=== PATIENT | female | born 1945 ===

== ENCOUNTER 2025-01-03 16:35 | Inpatient (IN) | payer MEDICARE ==
[~2025-01-03] VITALS: Ht 154.9 cm; Wt 62.7 kg
[2025-01-03] VITALS (8 sets, daily range): BP systolic 130–181; BP diastolic 74–131; TEMP 96; O2SAT 100
[2025-01-03 16:57] LABS: BASOPHILS % (AUTO) 0.4 % (0.0-2.0); EOSINOPHILS # (AUTO) 0.8 K/uL (0.0-0.7); EOSINOPHILS % (AUTO) 10.3 % (0.0-7.0); HEMATOCRIT 34.4 % (31.2-41.9); HEMOGLOBIN 10.8 g/dL (10.9-14.3); LYMPHOCYTES % (AUTO) 24.4 % (20.5-51.5); MEAN CORPUSCULAR HEMOGLOBIN 25.9 uug (24.7-32.8); MEAN CORPUSCULAR HGB CONC 32 g/dL (32.3-35.6); MEAN CORPUSCULAR VOLUME 82.2 fL (75.5-95.3); MONOCYTES # (AUTO) 0.6 K/uL (0.1-1.30); NEUTROPHILS # (AUTO) 4.6 K/uL (1.8-8.9); NEUTROPHILS % (AUTO) 56.9 % (38.5-71.5); PLATELET COUNT (AUTO) 279 K/uL (179-408); RED BLOOD CELL COUNT(AUTO) 4.18 MIL/uL (3.63-4.92); RED CELL DISTRIBUTION WIDTH 14.3 % (12.3-17.7)
[2025-01-03] MEDS ORDERED: diphenhydrAMINE 50 MG/1 ML VIAL ONE (16:59)
[2025-01-03] MEDS ORDERED: METOCLOPRAMIDE HCL 10 MG/2 ML VIAL ONE (16:59)
[2025-01-03] MEDS ORDERED: HALOPERIDOL LACTATE 5 MG/1 ML VIAL ONE (16:59)
[2025-01-03 17:04] LABS: DIFFERENTIAL COMMENT 1
[2025-01-03] MEDS: METOCLOPRAMIDE HCL 10 MG/2 ML VIAL IV ONE (17:05)
[2025-01-03] MEDS: diphenhydrAMINE 50 MG/1 ML VIAL IV ONE (17:05)
[2025-01-03] MEDS: HALOPERIDOL LACTATE 5 MG/1 ML VIAL IV ONE (17:05)
[2025-01-03 17:07] LABS: CALCIUM 10.1 mg/dL (8.5-10.1); CARBON DIOXIDE 31 mmol/L (21-32); CHLORIDE 98 mmol/L (98-107); CREATININE 2.7 mg/dL (0.6-1.3); GLUCOSE 245 mg/dL (74-106); POTASSIUM 4.1 mmol/L (3.5-5.1); SODIUM SERUM 141 mmol/L (136-145)
[2025-01-03 17:19] LABS: ALANINE AMINOTRANSFERASE 17 U/L (14-59); ALBUMIN 3.4 g/dL (3.4-5.0); ALKALINE PHOSPHATASE 93 U/L (50-136); ASPARTATE AMINOTRANSFERASE 33 U/L (15-37); BILIRUBIN,DIRECT 0.2 mg/dL (0.0-0.2); BILIRUBIN,TOTAL 0.6 mg/dL (0.2-1.0); NT-PRO BNP 631 pg/mL (0-125); TOTAL PROTEIN, SERUM 8.6 g/dL (6.4-8.2)
[2025-01-03] MEDS: IV NORMAL SALINE 1000 ML BAG IV ONE (17:20)
[2025-01-03] MEDS: ETOMIDATE 20 MG/10 ML VIAL IV ONE (17:23)
[2025-01-03] MEDS: ROCURONIUM BROMIDE 50 MG/5 ML VIAL IV ONE ×2 (17:24→21:30)
[2025-01-03] MEDS ORDERED: PROPOFOL 100 ML ONE (17:30)
[2025-01-03 17:33] LABS: LACTIC ACID 2.8 mmol/L (0.4-2.0)
[2025-01-03 17:34] LABS: UREA NITROGEN, BLOOD 85 mg/dL (7-18)
[2025-01-03] MEDS: PROPOFOL 100 ML IV PRN (17:43)
[2025-01-03] MEDS ORDERED: LOPE2CAP40 PO (17:49)
[2025-01-03] MEDS ORDERED: METH1TAB69 PO (17:49)
[2025-01-03] MEDS ORDERED: NYST15PO4 TP (17:49)
[2025-01-03] MEDS ORDERED: ATOR10TA PO (17:49)
[2025-01-03] MEDS ORDERED: SITA50TA (17:49)
[2025-01-03] MEDS ORDERED: ACET-2030 PO (17:49)
[2025-01-03] MEDS ORDERED: TRAM50TA2 PO (17:49)
[2025-01-03] MEDS ORDERED: MIRT-73 PO (17:49)
[2025-01-03] MEDS ORDERED: APIX5TAB4 PO (17:49)
[2025-01-03] MEDS ORDERED: QUET25TA PO ×2 (17:49)
[2025-01-03] MEDS ORDERED: LIDO1ADH82 TP (17:49)
[2025-01-03] MEDS ORDERED: CYAN250L PO (17:49)
[2025-01-03] MEDS ORDERED: CETI-194 PO (17:49)
[2025-01-03] MEDS ORDERED: SENN8.6T19 PO (17:49)
[2025-01-03] MEDS ORDERED: NEOM1OIN19 TP (17:49)
[2025-01-03] MEDS ORDERED: DONE10TA11 PO (17:49)
[2025-01-03] MEDS ORDERED: FLUT16SP16 NS (17:49)
[2025-01-03] MEDS ORDERED: FURO-152 PO (17:49)
[2025-01-03] MEDS ORDERED: LOSA50TA39 PO (17:49)
[2025-01-03] MEDS ORDERED: METRONIDAZOLE 500 MG/NS 100ML 100 ML IV ONE (17:57)
[2025-01-03] MEDS ORDERED: CEFTRIAXONE /D5W 50ML IVPB **ER PYXIS IV ONE (17:57)
[2025-01-03] MEDS: CEFTRIAXONE 1 G in IV DEXTROSE 5% 50 ML IV ONE (18:00)
[2025-01-03] MEDS ORDERED: MISCELLANEOUS MED IV ONE (18:15)
[2025-01-03 18:40] LABS: ABG BASE EXCESS 3.9 mmol/L (-2.0-3.0); ABG HCO3 24.8 mmol/L (21.0-28.0); ABG PH 7.597 (7.350-7.450); ABG PO2 > 500.9 mmHg (83.0-108.0); ABG SITE LEFT RADIAL; ABG TOTAL HEMOGLOBIN 10.9 G/dL (12.0-16.0); AaDO2 99.9 mmHg; COHb 0.2 % (0.5-1.5); MetHb 0.1 % (0.0-1.5); O2Hb 99.4 % (94.0-98.0); VT, ABG 450 mL
[2025-01-03] MEDS: METRONIDAZOLE 500 MG/NS 100ML 100 ML IV ONE (18:41)
[2025-01-03 19:03] LABS: *BILIRUBIN,URIN NEGATIVE (NEGATIVE); *BLOOD, URINE 1+ (NEGATIVE); *CLARITY,URINE CLEAR (CLEAR); *COLOR,URINE YELLOW (YELLOW); *KETONES,URINE NEGATIVE (NEGATIVE); *PROTEIN,URINE 1+ (NEGATIVE); *UROBILINOGEN,URINE 0.2 E.U./dl (NORMAL); LEUKOCYTE ESTERASE ,URINE 2+ (NEGATIVE); NITRITE, URINE NEGATIVE (NEGATIVE); UGLUCOSE NEGATIVE (NEGATIVE)
[2025-01-03 19:24] LABS: BACTERIA,URINE FEW /HPF (NONE SEEN); SQUAMOUS EPITHELIAL CELL,UR FEW /HPF (NONE SEEN); WBC,URINE 50-80 /HPF (0-3)
[2025-01-03] MEDS ORDERED: PANTOPRAZOLE SODIUM 40 MG VIAL ONE (20:21)
[2025-01-03] MEDS: PANTOPRAZOLE SODIUM IV 80 MG in IV DEXTROSE 5% 100 ML IV ONE (20:30)
[2025-01-03 22:18] LABS: HEMATOCRIT 36.1 % (31.2-41.9); HEMOGLOBIN 11.4 g/dL (10.9-14.3)
[2025-01-03] MEDS: PANTOPRAZOLE SODIUM 40 MG VIAL IV SCH (23:19)
[2025-01-03] MEDS: IV D5 1/2 NS 1000 ML 1,000 ML IV PRN (23:20)
[2025-01-04] VITALS (63 sets, daily range): BP systolic 81–158; BP diastolic 58–133; TEMP 96.5–98.6; O2SAT 98–100
[2025-01-04 02:04] LABS: HEMATOCRIT 33.1 % (31.2-41.9); HEMOGLOBIN 10.4 g/dL (10.9-14.3)
[2025-01-04] MEDS: PROPOFOL 100 ML IV PRN (03:49)
[2025-01-04 05:55] LABS: ABG BASE EXCESS 3.6 mmol/L (-2.0-3.0); ABG HCO3 25.9 mmol/L (21.0-28.0); ABG PCO2 31.5 mmHg (32.0-45.0); ABG PH 7.533 (7.350-7.450); ABG PO2 139.2 mmHg (83.0-108.0); ABG SITE RIGHT RADIAL; ABG TOTAL HEMOGLOBIN 10.8 G/dL (12.0-16.0); COHb 0.3 % (0.5-1.5); MetHb 0.2 % (0.0-1.5); O2Hb 98.4 % (94.0-98.0); VT, ABG 450 mL
[2025-01-04 06:02] LABS: BASOPHILS % (AUTO) 0.1 % (0.0-2.0); EOSINOPHILS # (AUTO) 0.3 K/uL (0.0-0.7); EOSINOPHILS % (AUTO) 3.8 % (0.0-7.0); HEMATOCRIT 33.2 % (31.2-41.9); HEMOGLOBIN 10.8 g/dL (10.9-14.3); LYMPHOCYTES # (AUTO) 0.5 K/uL (0.8-4.8); LYMPHOCYTES % (AUTO) 6.2 % (20.5-51.5); MEAN CORPUSCULAR HEMOGLOBIN 26.5 uug (24.7-32.8); MEAN CORPUSCULAR HGB CONC 33 g/dL (32.3-35.6); MEAN CORPUSCULAR VOLUME 81.4 fL (75.5-95.3); MONOCYTES # (AUTO) 0.4 K/uL (0.1-1.30); MONOCYTES % (AUTO) 4.4 % (0.0-11.0); NEUTROPHILS # (AUTO) 7.1 K/uL (1.8-8.9); NEUTROPHILS % (AUTO) 85.5 % (38.5-71.5); PLATELET COUNT (AUTO) 262 K/uL (179-408); RED BLOOD CELL COUNT(AUTO) 4.08 MIL/uL (3.63-4.92); WHITE BLOOD COUNT (AUTO) 8.4 K/uL (3.8-11.8)
[2025-01-04 06:24] LABS: DIFFERENTIAL COMMENT 1
[2025-01-04 06:28] LABS: ALANINE AMINOTRANSFERASE 14 U/L (14-59); ALKALINE PHOSPHATASE 93 U/L (50-136); ASPARTATE AMINOTRANSFERASE 32 U/L (15-37); BILIRUBIN,TOTAL 0.6 mg/dL (0.2-1.0); CALCIUM 9.3 mg/dL (8.5-10.1); CARBON DIOXIDE 29 mmol/L (21-32); CHLORIDE 106 mmol/L (98-107); CREATININE 2.3 mg/dL (0.6-1.3); GLUCOSE 303 mg/dL (74-106); POTASSIUM 4.1 mmol/L (3.5-5.1); SODIUM SERUM 146 mmol/L (136-145); TOTAL PROTEIN, SERUM 7.9 g/dL (6.4-8.2); UREA NITROGEN, BLOOD 72 mg/dL (7-18)
[2025-01-04 06:35] LABS: THYROID STIMULATING HORMONE 1.296 mIU/mL (0.358-3.740)
[2025-01-04 10:23] LABS: HEMOGLOBIN 10.5 g/dL (10.9-14.3)
[2025-01-04 14:09] LABS: HEMATOCRIT 32.3 % (31.2-41.9); HEMOGLOBIN 10.3 g/dL (10.9-14.3)
[2025-01-04] MEDS ORDERED: APIX5TAB PO (15:17)
[2025-01-04] MEDS ORDERED: LIDO30AD10 TD (15:33)
[2025-01-04] MEDS ORDERED: CYAN100T44 PO (15:33)
[2025-01-04] MEDS ORDERED: MIRT-93 PO (15:33)
[2025-01-04 18:15] LABS: HEMATOCRIT 31.4 % (31.2-41.9)
[2025-01-04] MEDS: CEFTRIAXONE 1 G in IV DEXTROSE 5% 50 ML IV SCH (20:06)
[2025-01-05] VITALS (64 sets, daily range): BP systolic 69–162; BP diastolic 54–92; TEMP 97.5–98; O2SAT 99–100
[2025-01-05 05:15] LABS: BASOPHILS % (AUTO) 0.2 % (0.0-2.0); EOSINOPHILS % (AUTO) 11.2 % (0.0-7.0); HEMATOCRIT 30.5 % (31.2-41.9); HEMOGLOBIN 9.9 g/dL (10.9-14.3); LYMPHOCYTES # (AUTO) 0.8 K/uL (0.8-4.8); LYMPHOCYTES % (AUTO) 8.5 % (20.5-51.5); MEAN CORPUSCULAR HEMOGLOBIN 26.4 uug (24.7-32.8); MEAN CORPUSCULAR HGB CONC 33 g/dL (32.3-35.6); MONOCYTES # (AUTO) 0.6 K/uL (0.1-1.30); MONOCYTES % (AUTO) 6.4 % (0.0-11.0); NEUTROPHILS # (AUTO) 6.6 K/uL (1.8-8.9); NEUTROPHILS % (AUTO) 73.7 % (38.5-71.5); PLATELET COUNT (AUTO) 228 K/uL (179-408); RED BLOOD CELL COUNT(AUTO) 3.76 MIL/uL (3.63-4.92); RED CELL DISTRIBUTION WIDTH 14.5 % (12.3-17.7)
[2025-01-05 05:19] LABS: DIFFERENTIAL COMMENT 1
[2025-01-05 05:29] LABS: ALANINE AMINOTRANSFERASE 13 U/L (14-59); ALBUMIN 2.5 g/dL (3.4-5.0); ALKALINE PHOSPHATASE 84 U/L (50-136); ASPARTATE AMINOTRANSFERASE 22 U/L (15-37); BILIRUBIN,DIRECT 0.1 mg/dL (0.0-0.2); BILIRUBIN,TOTAL 0.4 mg/dL (0.2-1.0); CALCIUM 8.5 mg/dL (8.5-10.1); CARBON DIOXIDE 27 mmol/L (21-32); CHLORIDE 105 mmol/L (98-107); CREATININE 1.8 mg/dL (0.6-1.3); GLUCOSE 277 mg/dL (74-106); MAGNESIUM 2.3 mg/dL (1.8-2.4); PHOSPHOROUS 2.6 mg/dL (2.5-4.9); POTASSIUM 3.4 mmol/L (3.5-5.1); SODIUM SERUM 142 mmol/L (136-145); UREA NITROGEN, BLOOD 51 mg/dL (7-18)
[2025-01-05 05:32] LABS: ABG HCO3 20.6 mmol/L (21.0-28.0); ABG PCO2 22.6 mmHg (32.0-45.0); ABG PH 7.578 (7.350-7.450); ABG PO2 138.8 mmHg (83.0-108.0); ABG SITE RIGHT RADIAL; AaDO2 99.1 mmHg; COHb 0.2 % (0.5-1.5); MetHb 0.2 % (0.0-1.5); O2Hb 98.7 % (94.0-98.0); VT, ABG 450 mL
[2025-01-05 05:37] LABS: LACTIC ACID 2.4 mmol/L (0.4-2.0)
[2025-01-05] MEDS ORDERED: NOREPINEPHRINE 8MG/NS 250ML 250 ML IV PRN ×2 (10:00→13:45)
[2025-01-05] MEDS: POTASSIUM CHLORIDE 50 ML IV SCH (11:12)
[2025-01-05] MEDS ORDERED: PROPOFOL 200 MG/20 ML BOTTLE ONE (12:00)
[2025-01-05] MEDS ORDERED: EPINEPHRINE 1:10,000 1 MG/10 ML DISP.SYRIN ONE (12:22)
[2025-01-06] VITALS (33 sets, daily range): BP systolic 112–146; BP diastolic 55–83; TEMP 97–98.6; O2SAT 96–100
[2025-01-06 05:26] LABS: BASOPHILS # (AUTO) 0.1 K/UL (0.0-0.2); BASOPHILS % (AUTO) 0.6 % (0.0-2.0); EOSINOPHILS # (AUTO) 1.1 K/uL (0.0-0.7); EOSINOPHILS % (AUTO) 11.2 % (0.0-7.0); HEMATOCRIT 31.3 % (31.2-41.9); HEMOGLOBIN 10.2 g/dL (10.9-14.3); LYMPHOCYTES # (AUTO) 0.8 K/uL (0.8-4.8); LYMPHOCYTES % (AUTO) 8.1 % (20.5-51.5); MEAN CORPUSCULAR HEMOGLOBIN 26.3 uug (24.7-32.8); MEAN CORPUSCULAR HGB CONC 32 g/dL (32.3-35.6); MONOCYTES # (AUTO) 0.5 K/uL (0.1-1.30); MONOCYTES % (AUTO) 5.8 % (0.0-11.0); NEUTROPHILS # (AUTO) 7.1 K/uL (1.8-8.9); NEUTROPHILS % (AUTO) 74.3 % (38.5-71.5); PLATELET COUNT (AUTO) 220 K/uL (179-408); RED BLOOD CELL COUNT(AUTO) 3.86 MIL/uL (3.63-4.92); RED CELL DISTRIBUTION WIDTH 14.6 % (12.3-17.7); WHITE BLOOD COUNT (AUTO) 9.5 K/uL (3.8-11.8)
[2025-01-06 05:33] LABS: DIFFERENTIAL COMMENT 1
[2025-01-06 05:37] LABS: CARBON DIOXIDE 24 mmol/L (21-32); CHLORIDE 109 mmol/L (98-107); CREATININE 1.3 mg/dL (0.6-1.3); GLUCOSE 260 mg/dL (74-106); PHOSPHOROUS 2.9 mg/dL (2.5-4.9); POTASSIUM 3.5 mmol/L (3.5-5.1); SODIUM SERUM 143 mmol/L (136-145); UREA NITROGEN, BLOOD 34 mg/dL (7-18)
[2025-01-06 07:32] LABS: ABG BASE EXCESS -1.8 mmol/L (-2.0-3.0); ABG PCO2 34.5 mmHg (32.0-45.0); ABG PH 7.423 (7.350-7.450); ABG SITE RIGHT RADIAL; ABG TOTAL HEMOGLOBIN 11.7 G/dL (12.0-16.0); AaDO2 98.5 mmHg; COHb 0.3 % (0.5-1.5); MetHb 0.2 % (0.0-1.5); O2Hb 98.2 % (94.0-98.0)
[2025-01-06] MEDS: MUPIROCIN 2% OINT 22 GM TUBE NS SCH (13:06)
[2025-01-06] MEDS ORDERED: DEXTROSE 50% 50 ML DISP.SYRIN IV PRN (17:00)
[2025-01-06] MEDS: BLOOD SUGAR DIAGNOSTIC 1 EACH STRIP VI SCH (17:33)
[2025-01-06] MEDS: INSULIN REGULAR, HUMAN 1000 UNIT/10 ML VIAL SQ PRN (17:40)
[2025-01-07] VITALS (26 sets, daily range): BP systolic 114–150; BP diastolic 46–104; TEMP 97.4–98.7; O2SAT 98–100
[2025-01-07 05:54] LABS: BASOPHILS % (AUTO) 0.2 % (0.0-2.0); EOSINOPHILS # (AUTO) 0.7 K/uL (0.0-0.7); EOSINOPHILS % (AUTO) 7.9 % (0.0-7.0); HEMATOCRIT 29.7 % (31.2-41.9); HEMOGLOBIN 9.6 g/dL (10.9-14.3); LYMPHOCYTES # (AUTO) 1.3 K/uL (0.8-4.8); LYMPHOCYTES % (AUTO) 14.1 % (20.5-51.5); MEAN CORPUSCULAR HEMOGLOBIN 26.4 uug (24.7-32.8); MEAN CORPUSCULAR HGB CONC 32 g/dL (32.3-35.6); MEAN CORPUSCULAR VOLUME 81.7 fL (75.5-95.3); MONOCYTES # (AUTO) 0.7 K/uL (0.1-1.30); MONOCYTES % (AUTO) 7.9 % (0.0-11.0); NEUTROPHILS # (AUTO) 6.3 K/uL (1.8-8.9); NEUTROPHILS % (AUTO) 69.9 % (38.5-71.5); PLATELET COUNT (AUTO) 230 K/uL (179-408); RED BLOOD CELL COUNT(AUTO) 3.64 MIL/uL (3.63-4.92); RED CELL DISTRIBUTION WIDTH 14.3 % (12.3-17.7); WHITE BLOOD COUNT (AUTO) 8.9 K/uL (3.8-11.8)
[2025-01-07 05:55] LABS: DIFFERENTIAL COMMENT 1
[2025-01-07 06:01] LABS: CALCIUM 8.3 mg/dL (8.5-10.1); CARBON DIOXIDE 25 mmol/L (21-32); CHLORIDE 108 mmol/L (98-107); CREATININE 1.3 mg/dL (0.6-1.3); GLUCOSE 100 mg/dL (74-106); PHOSPHOROUS 2.7 mg/dL (2.5-4.9); POTASSIUM 3.6 mmol/L (3.5-5.1); SODIUM SERUM 143 mmol/L (136-145); UREA NITROGEN, BLOOD 26 mg/dL (7-18)
[2025-01-07 06:02] LABS: ABG BASE EXCESS -1.7 mmol/L (-2.0-3.0); ABG PCO2 33.5 mmHg (32.0-45.0); ABG PH 7.435 (7.350-7.450); ABG PO2 135.8 mmHg (83.0-108.0); ABG SITE LEFT RADIAL; ABG TOTAL HEMOGLOBIN 10.1 G/dL (12.0-16.0); AaDO2 98.8 mmHg; COHb 0.3 % (0.5-1.5); MetHb 0.3 % (0.0-1.5); O2Hb 98.3 % (94.0-98.0)
[2025-01-07] MEDS: PANTOPRAZOLE SODIUM 40 MG VIAL IV SCH (08:07)
[2025-01-07] MEDS ORDERED: DC PROPOFOL ONCE EXTUBATED XX PRN (08:15)
[2025-01-07] MEDS ORDERED: LEVALBUTEROL HCL NEB 0.63 MG/3 ML NEBU NEB PRN (08:30)
[2025-01-07] MEDS: ALBUTEROL SULFATE 1.25 MG/3 ML NEBU NEB PRN (08:57)
[2025-01-07] MEDS: VITAMINS A AND D OINT 42 GM TUBE TP PRN (14:49)
[2025-01-08] VITALS (16 sets, daily range): BP systolic 101–143; BP diastolic 52–80; TEMP 96–98.7; O2SAT 97–100
[2025-01-08 04:17] LABS: BASOPHILS % (AUTO) 0.5 % (0.0-2.0); EOSINOPHILS # (AUTO) 0.9 K/uL (0.0-0.7); EOSINOPHILS % (AUTO) 10.9 % (0.0-7.0); HEMATOCRIT 29.9 % (31.2-41.9); HEMOGLOBIN 9.8 g/dL (10.9-14.3); LYMPHOCYTES # (AUTO) 1.2 K/uL (0.8-4.8); LYMPHOCYTES % (AUTO) 13.8 % (20.5-51.5); MEAN CORPUSCULAR HEMOGLOBIN 26.5 uug (24.7-32.8); MEAN CORPUSCULAR HGB CONC 33 g/dL (32.3-35.6); MEAN CORPUSCULAR VOLUME 81.3 fL (75.5-95.3); MONOCYTES # (AUTO) 0.8 K/uL (0.1-1.30); MONOCYTES % (AUTO) 9.4 % (0.0-11.0); NEUTROPHILS # (AUTO) 5.5 K/uL (1.8-8.9); NEUTROPHILS % (AUTO) 65.4 % (38.5-71.5); PLATELET COUNT (AUTO) 240 K/uL (179-408); RED BLOOD CELL COUNT(AUTO) 3.68 MIL/uL (3.63-4.92); RED CELL DISTRIBUTION WIDTH 14.2 % (12.3-17.7); WHITE BLOOD COUNT (AUTO) 8.4 K/uL (3.8-11.8)
[2025-01-08 04:24] LABS: DIFFERENTIAL COMMENT 1
[2025-01-08 04:25] LABS: CALCIUM 8.4 mg/dL (8.5-10.1); CARBON DIOXIDE 25 mmol/L (21-32); CHLORIDE 110 mmol/L (98-107); CREATININE 1.1 mg/dL (0.6-1.3); GLUCOSE 120 mg/dL (74-106); MAGNESIUM 1.9 mg/dL (1.8-2.4); POTASSIUM 3.2 mmol/L (3.5-5.1); SODIUM SERUM 145 mmol/L (136-145); UREA NITROGEN, BLOOD 18 mg/dL (7-18)
[2025-01-08 05:04] LABS: ABG BASE EXCESS 0.7 mmol/L (-2.0-3.0); ABG HCO3 25.2 mmol/L (21.0-28.0); ABG PH 7.417 (7.350-7.450); ABG PO2 82.1 mmHg (83.0-108.0); ABG SITE LEFT RADIAL; ABG TOTAL HEMOGLOBIN 10.7 G/dL (12.0-16.0); AaDO2 96.3 mmHg; COHb 0.3 % (0.5-1.5); MetHb 0.2 % (0.0-1.5); O2Hb 96.3 % (94.0-98.0)
[2025-01-08] MEDS: POTASSIUM PHOSPHATE MM 15 MMOL in IV NORMAL SALINE 250 ML IV ONE (08:41)
[2025-01-09] VITALS: BP 146/67; TEMP 97.7; O2SAT 100
[2025-01-09 04:00] VITALS: BP 148/71; TEMP 98.8; O2SAT 100
[2025-01-09 07:20] LABS: BASOPHILS # (AUTO) 0.1 K/UL (0.0-0.2); BASOPHILS % (AUTO) 0.8 % (0.0-2.0); EOSINOPHILS # (AUTO) 0.9 K/uL (0.0-0.7); EOSINOPHILS % (AUTO) 11.3 % (0.0-7.0); HEMATOCRIT 31.1 % (31.2-41.9); HEMOGLOBIN 10.1 g/dL (10.9-14.3); LYMPHOCYTES # (AUTO) 1.3 K/uL (0.8-4.8); LYMPHOCYTES % (AUTO) 16.6 % (20.5-51.5); MEAN CORPUSCULAR HEMOGLOBIN 26.5 uug (24.7-32.8); MEAN CORPUSCULAR HGB CONC 32 g/dL (32.3-35.6); MEAN CORPUSCULAR VOLUME 81.9 fL (75.5-95.3); MONOCYTES # (AUTO) 0.7 K/uL (0.1-1.30); MONOCYTES % (AUTO) 9.3 % (0.0-11.0); NEUTROPHILS # (AUTO) 4.8 K/uL (1.8-8.9); PLATELET COUNT (AUTO) 239 K/uL (179-408); RED CELL DISTRIBUTION WIDTH 13.7 % (12.3-17.7); WHITE BLOOD COUNT (AUTO) 7.7 K/uL (3.8-11.8)
[2025-01-09 07:27] LABS: DIFFERENTIAL COMMENT 1
[2025-01-09 07:36] LABS: CALCIUM 8.8 mg/dL (8.5-10.1); CARBON DIOXIDE 27 mmol/L (21-32); CHLORIDE 110 mmol/L (98-107); GLUCOSE 119 mg/dL (74-106); MAGNESIUM 1.7 mg/dL (1.8-2.4); PHOSPHOROUS 2.3 mg/dL (2.5-4.9); POTASSIUM 3.5 mmol/L (3.5-5.1); SODIUM SERUM 146 mmol/L (136-145); UREA NITROGEN, BLOOD 12 mg/dL (7-18)
[2025-01-09 07:51] VITALS: BP 145/68; TEMP 97.9; O2SAT 100
[2025-01-09] MEDS: MAGNESIUM SULFATE/D5W 100 ML IV SCH (09:23)
[2025-01-09] MEDS: POTASSIUM PHOSPHATE MM 15 MMOL in IV NORMAL SALINE 250 ML IV ONE (10:17)
[2025-01-09 11:16] VITALS: BP 106/68; TEMP 98; O2SAT 100
[2025-01-09] MEDS ORDERED: POLYVINYL ALCOHOL OPHT DROPS 15 ML BOTTLE EACHEYE PRN (12:15)
[2025-01-09 15:25] VITALS: BP 153/74; TEMP 98.4; O2SAT 100
[2025-01-09] MEDS: QUETIAPINE FUMARATE 25 MG TABLET PO PRN (15:56)
[2025-01-09] MEDS: SUCRALFATE 1 G TABLET PO SCH (15:56)
[2025-01-09 19:50] VITALS: BP 144/74; TEMP 97.4; O2SAT 99
[2025-01-09] MEDS ORDERED: DEXTROSE 50% 50 ML DISP.SYRIN IV PRN (20:00)
[2025-01-09] MEDS: BLOOD SUGAR DIAGNOSTIC 1 EACH STRIP VI SCH (20:44)
[2025-01-09] MEDS: MIRTAZAPINE 15 MG TABLET PO SCH (20:45)
[2025-01-09] MEDS: DONEPEZIL 10 MG TABLET PO SCH (20:45)
[2025-01-09] MEDS: SENNOSIDES 1 TABLET PO PRN (20:45)
[2025-01-10 05:31] VITALS: BP 162/84; TEMP 97.6; O2SAT 100
[2025-01-10 06:56] LABS: BASOPHILS # (AUTO) 0.1 K/UL (0.0-0.2); BASOPHILS % (AUTO) 1.1 % (0.0-2.0); EOSINOPHILS # (AUTO) 0.7 K/uL (0.0-0.7); EOSINOPHILS % (AUTO) 9.9 % (0.0-7.0); HEMATOCRIT 30.5 % (31.2-41.9); HEMOGLOBIN 9.7 g/dL (10.9-14.3); LYMPHOCYTES # (AUTO) 1.2 K/uL (0.8-4.8); LYMPHOCYTES % (AUTO) 17.2 % (20.5-51.5); MEAN CORPUSCULAR HGB CONC 32 g/dL (32.3-35.6); MEAN CORPUSCULAR VOLUME 81.7 fL (75.5-95.3); MONOCYTES # (AUTO) 0.6 K/uL (0.1-1.30); MONOCYTES % (AUTO) 8.6 % (0.0-11.0); NEUTROPHILS # (AUTO) 4.5 K/uL (1.8-8.9); NEUTROPHILS % (AUTO) 63.2 % (38.5-71.5); PLATELET COUNT (AUTO) 233 K/uL (179-408); RED BLOOD CELL COUNT(AUTO) 3.74 MIL/uL (3.63-4.92); RED CELL DISTRIBUTION WIDTH 14.1 % (12.3-17.7); WHITE BLOOD COUNT (AUTO) 7.2 K/uL (3.8-11.8)
[2025-01-10 06:58] LABS: DIFFERENTIAL COMMENT 1
[2025-01-10 07:13] LABS: CALCIUM 9.1 mg/dL (8.5-10.1); CARBON DIOXIDE 23 mmol/L (21-32); CHLORIDE 110 mmol/L (98-107); GLUCOSE 126 mg/dL (74-106); PHOSPHOROUS 3.4 mg/dL (2.5-4.9); POTASSIUM 4.3 mmol/L (3.5-5.1); SODIUM SERUM 144 mmol/L (136-145); UREA NITROGEN, BLOOD 12 mg/dL (7-18)
[2025-01-10 08:05] VITALS: BP 169/89; TEMP 98; O2SAT 100
[2025-01-10] MEDS: LOSARTAN POTASSIUM 50 MG TABLET PO SCH (09:53)
[2025-01-10] MEDS: LIDOCAINE 5% PATCH TD SCH (09:54)
[2025-01-10] MEDS: CYANOCOBALAMIN 100 MCG TABLET PO SCH (09:54)
[2025-01-10 10:21] VITALS: BP 156/84
[2025-01-10 12:00] VITALS: BP 146/72; TEMP 97.6
[2025-01-10 19:52] VITALS: BP 163/86; TEMP 97.6; O2SAT 91
[2025-01-11] MEDS: hydrALAZINE HCL 20 MG/1 ML VIAL IV PRN (04:35)
[2025-01-11 05:39] VITALS: BP 173/89; TEMP 97.6; O2SAT 100
[2025-01-11 06:43] LABS: BASOPHILS # (AUTO) 0.1 K/UL (0.0-0.2); BASOPHILS % (AUTO) 1.2 % (0.0-2.0); EOSINOPHILS # (AUTO) 0.6 K/uL (0.0-0.7); EOSINOPHILS % (AUTO) 9.4 % (0.0-7.0); HEMATOCRIT 31.2 % (31.2-41.9); LYMPHOCYTES # (AUTO) 1.3 K/uL (0.8-4.8); LYMPHOCYTES % (AUTO) 20.2 % (20.5-51.5); MEAN CORPUSCULAR HEMOGLOBIN 26.2 uug (24.7-32.8); MEAN CORPUSCULAR HGB CONC 32 g/dL (32.3-35.6); MEAN CORPUSCULAR VOLUME 81.4 fL (75.5-95.3); MONOCYTES # (AUTO) 0.7 K/uL (0.1-1.30); MONOCYTES % (AUTO) 10.7 % (0.0-11.0); NEUTROPHILS # (AUTO) 3.9 K/uL (1.8-8.9); NEUTROPHILS % (AUTO) 58.5 % (38.5-71.5); PLATELET COUNT (AUTO) 239 K/uL (179-408); RED BLOOD CELL COUNT(AUTO) 3.84 MIL/uL (3.63-4.92); RED CELL DISTRIBUTION WIDTH 14.3 % (12.3-17.7); WHITE BLOOD COUNT (AUTO) 6.7 K/uL (3.8-11.8)
[2025-01-11 06:54] LABS: CALCIUM 9.3 mg/dL (8.5-10.1); CARBON DIOXIDE 22 mmol/L (21-32); CHLORIDE 108 mmol/L (98-107); CREATININE 1.1 mg/dL (0.6-1.3); GLUCOSE 124 mg/dL (74-106); SODIUM SERUM 145 mmol/L (136-145); UREA NITROGEN, BLOOD 14 mg/dL (7-18)
[2025-01-11 06:58] LABS: DIFFERENTIAL COMMENT 1
[2025-01-11] MEDS: GLUCERNA SHAKE 237 ML CAN PO SCH (09:21)
[2025-01-11] MEDS: INSULIN REGULAR, HUMAN 1000 UNIT/10 ML VIAL SQ PRN (10:48)
[2025-01-11] MEDS: QUETIAPINE FUMARATE 25 MG TABLET PO SCH (11:20)
[2025-01-11] MEDS: PANTOPRAZOLE SODIUM 40 MG TABLET.DR PO SCH (16:46)
[2025-01-11 19:52] VITALS: BP 144/58; TEMP 97.4; O2SAT 98
[2025-01-12 05:13] VITALS: BP 144/71; TEMP 97.3; O2SAT 97
[2025-01-12 06:56] LABS: BASOPHILS # (AUTO) 0.1 K/UL (0.0-0.2); EOSINOPHILS # (AUTO) 0.6 K/uL (0.0-0.7); EOSINOPHILS % (AUTO) 10.4 % (0.0-7.0); HEMATOCRIT 31.1 % (31.2-41.9); HEMOGLOBIN 9.7 g/dL (10.9-14.3); LYMPHOCYTES # (AUTO) 1.1 K/uL (0.8-4.8); LYMPHOCYTES % (AUTO) 18.5 % (20.5-51.5); MEAN CORPUSCULAR HGB CONC 31 g/dL (32.3-35.6); MEAN CORPUSCULAR VOLUME 83.3 fL (75.5-95.3); MONOCYTES # (AUTO) 0.6 K/uL (0.1-1.30); MONOCYTES % (AUTO) 10.4 % (0.0-11.0); NEUTROPHILS # (AUTO) 3.5 K/uL (1.8-8.9); NEUTROPHILS % (AUTO) 59.7 % (38.5-71.5); PLATELET COUNT (AUTO) 190 K/uL (179-408); RED BLOOD CELL COUNT(AUTO) 3.74 MIL/uL (3.63-4.92); RED CELL DISTRIBUTION WIDTH 14.5 % (12.3-17.7); WHITE BLOOD COUNT (AUTO) 5.9 K/uL (3.8-11.8)
[2025-01-12 07:10] LABS: CALCIUM 9.3 mg/dL (8.5-10.1); CARBON DIOXIDE 24 mmol/L (21-32); CHLORIDE 108 mmol/L (98-107); CREATININE 1.2 mg/dL (0.6-1.3); DIFFERENTIAL COMMENT 1; GLUCOSE 119 mg/dL (74-106); SODIUM SERUM 139 mmol/L (136-145); UREA NITROGEN, BLOOD 19 mg/dL (7-18)
[2025-01-12 07:21] LABS: POTASSIUM 3.9 mmol/L (3.5-5.1)
[2025-01-12 12:00] VITALS: BP 149/85; TEMP 97.5; O2SAT 100
[2025-01-12] MEDS: MIRALAX 17 GM POWD.PACK PO SCH (13:03)
[2025-01-12 16:00] VITALS: BP 128/70; TEMP 97.7; O2SAT 100
[2025-01-12 19:00] VITALS: BP 133/68; TEMP 97.6; O2SAT 100
[2025-01-13 05:56] LABS: BASOPHILS % (AUTO) 0.3 % (0.0-2.0); EOSINOPHILS # (AUTO) 0.8 K/uL (0.0-0.7); EOSINOPHILS % (AUTO) 13.1 % (0.0-7.0); HEMATOCRIT 31.7 % (31.2-41.9); HEMOGLOBIN 10.4 g/dL (10.9-14.3); LYMPHOCYTES # (AUTO) 0.9 K/uL (0.8-4.8); LYMPHOCYTES % (AUTO) 15.2 % (20.5-51.5); MEAN CORPUSCULAR HEMOGLOBIN 26.7 uug (24.7-32.8); MEAN CORPUSCULAR HGB CONC 33 g/dL (32.3-35.6); MEAN CORPUSCULAR VOLUME 81.6 fL (75.5-95.3); MONOCYTES # (AUTO) 0.7 K/uL (0.1-1.30); MONOCYTES % (AUTO) 11.5 % (0.0-11.0); NEUTROPHILS # (AUTO) 3.6 K/uL (1.8-8.9); NEUTROPHILS % (AUTO) 59.9 % (38.5-71.5); PLATELET COUNT (AUTO) 214 K/uL (179-408); RED BLOOD CELL COUNT(AUTO) 3.89 MIL/uL (3.63-4.92); RED CELL DISTRIBUTION WIDTH 14.1 % (12.3-17.7)
[2025-01-13 05:59] LABS: DIFFERENTIAL COMMENT 1
[2025-01-13 06:00] VITALS: BP 149/78; TEMP 97.7; O2SAT 100
[2025-01-13 06:07] LABS: CALCIUM 9.4 mg/dL (8.5-10.1); CARBON DIOXIDE 24 mmol/L (21-32); CHLORIDE 106 mmol/L (98-107); CREATININE 1.3 mg/dL (0.6-1.3); GLUCOSE 147 mg/dL (74-106); POTASSIUM 4.1 mmol/L (3.5-5.1); SODIUM SERUM 139 mmol/L (136-145); UREA NITROGEN, BLOOD 16 mg/dL (7-18)
[2025-01-13 08:03] VITALS: BP 152/67; TEMP 98.4; O2SAT 100
[2025-01-13 12:06] VITALS: BP 126/72; TEMP 96.3; O2SAT 97
[2025-01-13 19:00] VITALS: BP 149/56; TEMP 97.7; O2SAT 100
[2025-01-13 19:40] VITALS: BP 149/56; TEMP 97.7; O2SAT 100
[2025-01-13] MEDS: QUETIAPINE FUMARATE 25 MG TABLET PO SCH (21:26)
[2025-01-14 06:00] VITALS: BP 137/63; TEMP 98.7; O2SAT 98
[2025-01-14 07:36] LABS: BASOPHILS % (AUTO) 0.2 % (0.0-2.0); EOSINOPHILS % (AUTO) 19.1 % (0.0-7.0); HEMOGLOBIN 9.2 g/dL (10.9-14.3); LYMPHOCYTES # (AUTO) 1.1 K/uL (0.8-4.8); LYMPHOCYTES % (AUTO) 20.7 % (20.5-51.5); MEAN CORPUSCULAR HEMOGLOBIN 26.3 uug (24.7-32.8); MEAN CORPUSCULAR HGB CONC 33 g/dL (32.3-35.6); MEAN CORPUSCULAR VOLUME 80.2 fL (75.5-95.3); MONOCYTES # (AUTO) 0.5 K/uL (0.1-1.30); MONOCYTES % (AUTO) 9.3 % (0.0-11.0); NEUTROPHILS # (AUTO) 2.7 K/uL (1.8-8.9); NEUTROPHILS % (AUTO) 50.7 % (38.5-71.5); PLATELET COUNT (AUTO) 223 K/uL (179-408); RED BLOOD CELL COUNT(AUTO) 3.49 MIL/uL (3.63-4.92); WHITE BLOOD COUNT (AUTO) 5.4 K/uL (3.8-11.8)
[2025-01-14 08:06] LABS: DIFFERENTIAL COMMENT 1
[2025-01-14 08:16] LABS: CARBON DIOXIDE 27 mmol/L (21-32); CHLORIDE 107 mmol/L (98-107); GLUCOSE 92 mg/dL (74-106); POTASSIUM 3.7 mmol/L (3.5-5.1); SODIUM SERUM 143 mmol/L (136-145); UREA NITROGEN, BLOOD 14 mg/dL (7-18)
[2025-01-14 08:23] LABS: CALCIUM 8.7 mg/dL (8.5-10.1)
[2025-01-14 11:35] VITALS: BP 121/59; TEMP 97.7; O2SAT 94
[2025-01-14 16:00] VITALS: BP 112/63; TEMP 98.1; O2SAT 99
[2025-01-15 06:07] LABS: CALCIUM 8.7 mg/dL (8.5-10.1); CARBON DIOXIDE 28 mmol/L (21-32); CHLORIDE 105 mmol/L (98-107); CREATININE 1.2 mg/dL (0.6-1.3); GLUCOSE 98 mg/dL (74-106); POTASSIUM 4.2 mmol/L (3.5-5.1); SODIUM SERUM 141 mmol/L (136-145); UREA NITROGEN, BLOOD 15 mg/dL (7-18)
[2025-01-15 06:13] LABS: BASOPHILS % (AUTO) 0.4 % (0.0-2.0); EOSINOPHILS # (AUTO) 1.4 K/uL (0.0-0.7); EOSINOPHILS % (AUTO) 17.8 % (0.0-7.0); HEMATOCRIT 30.9 % (31.2-41.9); HEMOGLOBIN 9.9 g/dL (10.9-14.3); LYMPHOCYTES # (AUTO) 1.5 K/uL (0.8-4.8); MEAN CORPUSCULAR HEMOGLOBIN 25.9 uug (24.7-32.8); MEAN CORPUSCULAR HGB CONC 32 g/dL (32.3-35.6); MEAN CORPUSCULAR VOLUME 80.8 fL (75.5-95.3); MONOCYTES # (AUTO) 0.6 K/uL (0.1-1.30); NEUTROPHILS # (AUTO) 4.3 K/uL (1.8-8.9); NEUTROPHILS % (AUTO) 54.8 % (38.5-71.5); PLATELET COUNT (AUTO) 242 K/uL (179-408); RED BLOOD CELL COUNT(AUTO) 3.82 MIL/uL (3.63-4.92); RED CELL DISTRIBUTION WIDTH 14.2 % (12.3-17.7); WHITE BLOOD COUNT (AUTO) 7.8 K/uL (3.8-11.8)
[2025-01-15 06:16] LABS: DIFFERENTIAL COMMENT 1
[2025-01-15 07:10] VITALS: BP 139/58; TEMP 97.4; O2SAT 98
[2025-01-15] MEDS ORDERED: SUCR1TAB31 PO (10:07)
[2025-01-15] MEDS ORDERED: SENN-175 PO (10:07)
[2025-01-15] MEDS ORDERED: POLY15DR27 EACHEYE (10:07)
[2025-01-15] MEDS ORDERED: QUET25TA36 PO (10:07)
[2025-01-15] MEDS ORDERED: POLY17PO4 PO (10:07)
[2025-01-15] MEDS ORDERED: ALBU1.25 NEB (10:08)
[2025-01-15] MEDS ORDERED: CYAN100T9 PO (10:08)
[2025-01-15] MEDS ORDERED: LIDO30AD10 TD (10:08)
[2025-01-15] MEDS ORDERED: DONE10TA44 PO (10:08)
[2025-01-15] MEDS ORDERED: NUT.237L36 PO (10:08)
[2025-01-15] MEDS ORDERED: Blood Sugar Diagnostic VI (10:08)
[2025-01-15] MEDS ORDERED: MIRT-93 PO (10:08)
[2025-01-15] MEDS ORDERED: INSU100V28 SQ (10:08)
[2025-01-15] MEDS ORDERED: PANT40TA49 PO (10:08)
[2025-01-15] MEDS ORDERED: LOSA50TA3 PO (10:08)
[2025-01-15 11:35] VITALS: BP 111/58; TEMP 97.5; O2SAT 100
[2025-01-15 16:00] VITALS: BP 129/67; TEMP 97.3; O2SAT 100
[2025-01-15 19:00] VITALS: BP 122/62; TEMP 97.9; O2SAT 99
[2025-01-16 06:00] VITALS: BP 149/76; TEMP 97.5; O2SAT 95
[2025-01-16 06:49] LABS: BASOPHILS % (AUTO) 0.4 % (0.0-2.0); EOSINOPHILS % (AUTO) 14.9 % (0.0-7.0); HEMATOCRIT 28.8 % (31.2-41.9); HEMOGLOBIN 9.4 g/dL (10.9-14.3); LYMPHOCYTES # (AUTO) 1.1 K/uL (0.8-4.8); LYMPHOCYTES % (AUTO) 15.9 % (20.5-51.5); MEAN CORPUSCULAR HEMOGLOBIN 26.3 uug (24.7-32.8); MEAN CORPUSCULAR HGB CONC 33 g/dL (32.3-35.6); MEAN CORPUSCULAR VOLUME 80.3 fL (75.5-95.3); MONOCYTES # (AUTO) 0.5 K/uL (0.1-1.30); MONOCYTES % (AUTO) 6.9 % (0.0-11.0); NEUTROPHILS # (AUTO) 4.3 K/uL (1.8-8.9); NEUTROPHILS % (AUTO) 61.9 % (38.5-71.5); PLATELET COUNT (AUTO) 229 K/uL (179-408); RED BLOOD CELL COUNT(AUTO) 3.58 MIL/uL (3.63-4.92); RED CELL DISTRIBUTION WIDTH 13.8 % (12.3-17.7); WHITE BLOOD COUNT (AUTO) 6.9 K/uL (3.8-11.8)
[2025-01-16 07:03] LABS: CALCIUM 8.8 mg/dL (8.5-10.1); CARBON DIOXIDE 29 mmol/L (21-32); CHLORIDE 105 mmol/L (98-107); CREATININE 1.4 mg/dL (0.6-1.3); GLUCOSE 148 mg/dL (74-106); POTASSIUM 4.1 mmol/L (3.5-5.1); SODIUM SERUM 141 mmol/L (136-145); UREA NITROGEN, BLOOD 19 mg/dL (7-18)
[2025-01-16 07:04] LABS: DIFFERENTIAL COMMENT 1
[2025-01-16 11:35] VITALS: BP 127/60; TEMP 97.9; O2SAT 100
[2025-01-16 16:00] VITALS: BP 112/58; TEMP 97.4; O2SAT 97
== END 2025-01-16 17:20 | DRG 377 ==
LOC: ER 16:35 → CCU 21:16 → TELE3 01-08 16:15 → MEDSURG3 01-09 15:40
PROVIDERS: ADMIT Nurse Practitioner Family; ATTEND Nurse Practitioner Family
PROC: 0BH17EZ Insertion of Endotracheal Airway into Trachea, Via Natural or Artificial Opening (ICD-10-PCS; principal; 2025-01-03)
PROC: 5A1945Z Respiratory Ventilation, 24-96 Consecutive Hours (ICD-10-PCS; 2025-01-03)
PROC: 0DJ08ZZ Inspection of Upper Intestinal Tract, Via Natural or Artificial Opening Endoscopic (ICD-10-PCS; 2025-01-05)
PROC: 05H933Z Insertion of Infusion Device into Right Brachial Vein, Percutaneous Approach (ICD-10-PCS; 2025-01-08)
DX: K29.71 Gastritis, unspecified, with bleeding (principal); G93.41 Metabolic encephalopathy; J96.01 Acute respiratory failure with hypoxia; N17.0 Acute kidney failure with tubular necrosis; M48.56XA Collapsed vertebra, not elsewhere classified, lumbar region, initial encounter for fracture; D62 Acute posthemorrhagic anemia; E44.0 Moderate protein-calorie malnutrition; E87.20 Acidosis, unspecified; N39.0 Urinary tract infection, site not specified; K22.11 Ulcer of esophagus with bleeding; K80.20 Calculus of gallbladder without cholecystitis without obstruction; Z86.718 Personal history of other venous thrombosis and embolism; Z68.26 Body mass index [BMI] 26.0-26.9, adult; K29.80 Duodenitis without bleeding; E78.5 Hyperlipidemia, unspecified; M89.8X9 Other specified disorders of bone, unspecified site; E83.42 Hypomagnesemia; E87.6 Hypokalemia; N28.1 Cyst of kidney, acquired; Z22.322 Carrier or suspected carrier of Methicillin resistant Staphylococcus aureus; Z88.5 Allergy status to narcotic agent; Z88.6 Allergy status to analgesic agent; Z88.0 Allergy status to penicillin; Z79.01 Long term (current) use of anticoagulants; M85.88 Other specified disorders of bone density and structure, other site; E86.0 Dehydration; F03.90 Unspecified dementia, unspecified severity, without behavioral disturbance, psychotic disturbance, mood disturbance, and anxiety; I25.10 Atherosclerotic heart disease of native coronary artery without angina pectoris; E11.65 Type 2 diabetes mellitus with hyperglycemia; E11.22 Type 2 diabetes mellitus with diabetic chronic kidney disease; N18.9 Chronic kidney disease, unspecified; Y84.4 Aspiration of fluid as the cause of abnormal reaction of the patient, or of later complication, without mention of misadventure at the time of the procedure; Y92.238 Other place in hospital as the place of occurrence of the external cause
CPT/HCPCS: 36415; 36600; 70030-TC; 70450; 71045; 71250; 72125; 82803; 83605; 83735; 84100; 84443; 84484; 85018; 85025; 85610; 85730; 86850; 86900; 86901; 87040; 87086; 93005; 93307; 94003; 94664; 94760; A4606; A4663; G0378; J0171; J0360; J0696; J1200; J1630; J1815; J2470; J2765; J3475; J3480; J3490; J7040